=== PATIENT | male | born 1960 | race Caucasian/White ===

== ENCOUNTER 2016-11-22 14:42 | Observation (INO) | payer BC ==
[2016-11-22] MEDS ORDERED: Sodium Chloride 0.9% 1000 ML 1,000 ML IV SCH (15:45)
[2016-11-22 16:04] LABS: ALBUMIN 3.4 g/dL (3.4-5.0); ALKALINE PHOSPHATASE 89 U/L (46-116); ANION GAP 13.8 MEQ/L (5-15); BLOOD UREA NITROGEN 10 mg/dL (9-20); CHLORIDE 101 mEq/L (98-107); Carbon Dioxide 27.6 mEq/L (21-32); Glucose 141 MG/DL (70-110); Potassium 3.7 mEq/L (3.5-5.1); SGOT/AST 28 U/L (15-37); SGPT/ALT 58 U/L (12-78); SODIUM 139 mEq/L (136-145); Total Protein 7.7 gm/dL (6.4-8.2)
[2016-11-22] MEDS: Levofloxacin 500MG/100ML D5W 500 MG/100 ML BAG IV SCH (16:08)
[2016-11-22 16:15] LABS: BASOPHIL % 0.1 % (0.0-0.4); Eosinophil % 0.4 % (0.00-5.0); Granulocytes % 87.2 % (36.0-66.0); Lymphocytes % 6.7 % (24.0-44.0); Mean Corpuscular Hemoglobin 30.3 pg (26-32); Monocytes % 5.6 % (0.0-12.0); Platelet Count 190 K/mm3 (150-450); Red Blood Count 4.75 M/mm3 (4.1-5.6); Red Cell Distribution Width 13.8 % (11.5-14.0); White Blood Count 14.6 K/mm3 (4.0-10.5)
[2016-11-22] MEDS ORDERED: VANCOCIN 1 GM VIAL*** 2 GM in Sodium Chloride 0.9% 500 ML 500 ML IV ONE (17:45)
[2016-11-23] MEDS ORDERED: VANCOCIN 1 GM VIAL*** 1.75 GM in Sodium Chloride 0.9% 500 ML 500 ML IV SCH (06:00)
[2016-11-23 06:28] LABS: Mean Corpuscular Hemoglobin 30.7 pg (26-32); Mean Platelet Volume 9.6 fl (6-9.5); Platelet Count 191 K/mm3 (150-450); Red Blood Count 4.86 M/mm3 (4.1-5.6); White Blood Count 14.2 K/mm3 (4.0-10.5)
--- NOTE | 2016-11-23 08:45 | CONS ---
CONSULT DATE: 11/22/2016 HISTORY: The patient is a 56 year-old gentleman who has had wart-like lesion on his arm for some time, whether he picked at it or it fell off. He had some redness and swelling of his arm over the past couple of days and sent to the hospital by Dr. Morgan as per surgical consult. PAST SURGICAL HISTORY: Hernia repair in the past. MEDICATIONS: He is on one medication but he is not sure of the name so the nurse is working on obtaining that. He denies blood thinner use. Please see the MAR. ALLERGIES: NKDA. SOCIAL HISTORY: No alcohol abuse. FAMILY HISTORY: Negative in regards to this problem. REVIEW OF SYSTEMS: Twelve systems reviewed per admission assessment. No chest pain or palpitations. He denies any blood thinner use or bleeding problems. He denies any surgery on his arm in the past. PHYSICAL EXAMINATION: GENERAL: Slightly sore white male in no acute distress. HEENT: Sclera nonicteric. NECK: No JVD. CHEST: Equal excursion, nonlabored breathing. CVS: Regular rhythm and pulse. ABDOMEN: Soft, obese. No peritoneal signs. EXTREMITIES: No significant edema. NEURO: Alert, oriented, moving extremities grossly symmetrically with exception of range of motion of his right upper extremity tenderness, aches, pain and swelling. Right upper extremity he has a wart-like lesion distal to the elbow. No specific fluctuance. No drainage at that time. He does have a dressing over it but no drainage. Otherwise he has some redness around his arm in this area. No isolated fluctuant area at this time. He has palpable radial pulses. Otherwise sensation is intact. LAB DATA AND TESTS: There are no labs available at this time. IMPRESSION: Cellulitis right arm, small little wart-like lesion in that area. No active drainage. No isolated fluctuance to drain at this time. He is on IV Levaquin at this time. I recommend IV Vancomycin for Staph coverage. Maybe consider Zosyn or other medication. The patient denies any diabetes. Otherwise there is no obvious isolated fluctuant area discussed the option of excising this lesion on his upper extremity and drainage if there is any collection underneath. General risk of bleeding, infection, aches and pains, possibility of not finding any collection underneath, this was discussed with the patient at length. General risk of anesthesia, deep venous thrombosis, pulmonary embolism, pneumonia but not limited to, risk of infection possibly requiring other procedures. He also understands if there is any infection of the joint itself that orthopedics would need to manage that. He understands but at this time he is not agreeing to consider any operative intervention at this moment. He prefers just to continue IV antibiotics, medical management. If he fails to improve or develops an isolated fluctuant area that needed draining might need to reconsider but at this time he is not agreeing to consider any surgical intervention at this time as there is not an isolated fluctuance in the area. I will continue with the patient's wishes and no surgical intervention at this time, continue IV antibiotics, medical management. I will be tied up in [place] tomorrow. One of my partners may stop by and check on the patient tomorrow.
[2016-11-23] MEDS ORDERED: Protonix 40MG Tablet PO SCH (10:00)
[2016-11-23] MEDS ORDERED: FLUCELVAX QUAD 2017-2018 SYR IM ONE (10:00)
[2016-11-23] MEDS: Levofloxacin 500MG/100ML D5W 500 MG/100 ML BAG IV SCH (11:09)
--- NOTE | 2016-11-23 13:04 | PCM.NOTE ---
Date and Time: 11/23/16 1303 Subjective Assessment: doing ok - Review of Systems Constitutional: No Fever, No Chills Eyes: No Symptoms Ears, Nose, & Throat: No Symptoms Respiratory: No Cough, No Short Of Breath Cardiac: No Chest Pain, No Edema, No Syncope Abdominal/Gastrointestinal: No Abdominal Pain, No Nausea, No Vomiting, No Diarrhea Genitourinary Symptoms: No Dysuria Musculoskeletal: No Back Pain, No Neck Pain Skin: No Rash Neurological: No Dizziness, No Focal Weakness, No Sensory Changes Psychological: No Symptoms Endocrine: No Symptoms Hematologic/Lymphatic: No Symptoms Immunological/Allergic: No Symptoms Objective Exam General Appearance: no apparent distress, alert Neurologic Exam: alert, oriented x 3, cooperative, normal mood/affect, nml cerebellar function, sensation nml, No motor deficits Skin Exam: normal color, warm, dry Eye Exam: PERRL, EOMI, eyes nml inspection Ears, Nose, Throat Exam: normal ENT inspection, pharynx normal, moist mucous membranes Neck Exam: normal inspection, non-tender, supple, full range of motion Respiratory Exam: normal breath sounds, lungs clear, No respiratory distress Cardiovascular Exam: regular rate/rhythm, normal heart sounds Gastrointestinal/Abdomen Exam: soft, No tenderness, No mass Extremity Exam: normal inspection, normal range of motion Back Exam: normal inspection, normal range of motion, No CVA tenderness, No vertebral tenderness Male Genitalia Exam: deferred Rectal Exam: deferred OBJECTIVE DATA Vital Signs: Vital Signs - 24 hr Temp Pulse Resp BP Pulse Ox 11/23/16 11:23 98.6 F 90 18 124/70 94 L 11/23/16 07:18 97.6 F 96 H 18 134/72 95 11/23/16 03:32 98.2 F 95 H 17 152/82 94 L 11/23/16 00:00 98.8 F 96 H 16 144/84 93 L 11/22/16 20:00 98.8 F 100 H 18 160/85 94 L 11/22/16 16:02 98.4 F 97 H 18 129/71 96 11/22/16 15:05 98 F 102 H 18 159/96 96 11/22/16 15:02 98.0 F 102 H 18 159/96 96 Pain Assessment - Last Documented Pain Intensity 8 Pain Scale Used 0-10 Pain Scale Intake and Output: Intake & Output 1011/22/16 11/23/16 11/24/16 11:59 11:59 11:59 11:59 Intake Total 1897 0 Output Total 1260 1000 Balance 637 -1000 Weight 117.537 kg Lab Results: Lab Results-Last 24 Hours 11/22/16 11/22/16 11/23/16 Range/Units 15:30 16:05 05:00 WBC 14.6 H 14.2 H (4.0-10.5) K/mm3 RBC 4.75 4.86 (4.1-5.6) M/mm3 Hgb 14.4 14.9 (12.5-18.0) gm/dl Hct 43.7 44.7 (42-50) % MCV 92.0 92.0 (78-100) fl MCH 30.3 30.7 (26-32) pg MCHC 33.0 33.3 (32-36) g/dl RDW 13.8 14.0 (11.5-14.0) % Plt Count 190 191 (150-450) K/mm3 MPV 9.0 9.6 H (6-9.5) fl Gran % 87.2 H (36.0-66.0) % Lymphocytes % 6.7 L (24.0-44.0) % Monocytes % 5.6 (0.0-12.0) % Eosinophils % 0.4 (0.00-5.0) % Basophils % 0.1 (0.0-0.4) % Basophils # 0.02 (0-0.4) Sodium 139 (136-145) mEq/L Potassium 3.7 (3.5-5.1) mEq/L Chloride 101 (98-107) mEq/L Carbon Dioxide 27.6 (21-32) mEq/L Anion Gap 13.8 (5-15) MEQ/L BUN 10 (9-20) mg/dL Creatinine 0.99 (0.55-1.30) mg/dl Estimated GFR > 60 ML/MIN Glucose 141 H (70-110) MG/DL Calcium 8.9 (8.5-10.1) mg/dL Total Bilirubin 0.80 (0.2-1.0) mg/dL AST 28 (15-37) U/L ALT 58 (12-78) U/L Alkaline Phosphatase 89 (46-116) U/L Serum Total Protein 7.7 (6.4-8.2) gm/dL Albumin 3.4 (3.4-5.0) g/dL Multi-Disciplinary Progress Notes: Multi-Disciplinary Progress Notes 11/23/16 07:26 Pharmacy Note by PRODUCT DEVELOPMENT,PHARM 11/23: Pharmacy to dose Vancomycin for right upper arm cellulitis. Vancomycin 1750 mg q12 hrs (Wt: 259 lbs SCr: 0.99) to produce a predicted peak of 29.7 mcg/ ml and a predicted trough of 13.51 mcg/ml. Monitor BUN & SCr at least q3 days ( more frequently if unstable). Trough to be drawn 11/24. Thank you! Pau, pharmacy tech Initialized on 11/23/16 07:26 - END OF NOTE Assessment/Plan (1) Cellulitis of right arm Current Visit: Yes Status: Acute Assessment & Plan: Chief Complaint Diagnosis Cellulitis right arm Allergies Allergy/AdvReac Type Severity Reaction Status Date / Time No Known Drug Allergies Allergy Verified 11/22/16 15:05 Vital Signs (Last 24 hours) Temp Pulse Resp BP Pulse Ox 11/23/16 11:23 98.6 F 90 18 124/70 94 L 11/23/16 07:18 97.6 F 96 H 18 134/72 95 11/23/16 03:32 98.2 F 95 H 17 152/82 94 L 11/23/16 00:00 98.8 F 96 H 16 144/84 93 L 11/22/16 20:00 98.8 F 100 H 18 160/85 94 L 11/22/16 16:02 98.4 F 97 H 18 129/71 96 11/22/16 15:05 98 F 102 H 18 159/96 96 11/22/16 15:02 98.0 F 102 H 18 159/96 96 Home Medications Medication Instructions Recorded Confirmed Last Taken Type Levofloxacin [Levaquin] 500 mg PO DAILY 11/22/16 11/22/16 11/22/16 History PANTOPRAZOLE 40 mg Tablet 40 mg PO QAM 11/22/16 11/22/16 11/22/16 History [Protonix 40MG Tablet] Current Medications Generic Name Dose Route Start Last Admin Trade Name Freq PRN Reason Stop Dose Admin Levofloxacin/Dextrose 500 mg in 100 mls @ 100 mls/hr 11/22/16 15:35 11/23/16 11:09 Levofloxacin 500mg/100ml D5w IV 12/22/16 15:34 100 mls/hr Q24H10 APRYL Administration Sodium Chloride 1,000 mls @ 80 mls/hr 11/22/16 15:45 11/22/16 16:08 Sodium Chloride 0.9% 1000 Ml IV 12/22/16 15:44 80 mls/hr .[id number] APRYL Administration Vancomycin HCl 1.75 gm/ Sodium 500 mls @ 167 mls/hr 11/23/16 06:00 11/23/16 06:04 Chloride IV 12/23/16 05:59 167 mls/hr Q12H APRYL Administration Influenza Virus Vaccine Quadrival 60 mcg 11/24/16 10:00 Flucelvax Quad [id number] Syr IM 11/24/16 10:01 .ONCE ONE Pantoprazole Sodium 40 mg 11/23/16 10:00 11/23/16 11:08 Protonix 40mg Tablet PO 12/23/16 09:59 40 mg QAM APRYL Administration Discontinued Medications Generic Name Dose Route Start Last Admin Trade Name Freq PRN Reason Stop Dose Admin Vancomycin HCl 2 gm/ Sodium 500 mls @ 167 mls/hr 11/22/16 17:45 11/22/16 17: 54 Chloride IV 11/22/16 20:44 167 mls/hr NOW ONE Administration Intake & Output (Last 24 hours) 11/21/16 11/22/16 11/23/16 11/24/16 11:59 11:59 11:59 11:59 Intake Total 1897 0 Output Total 1260 1000 Balance 637 -1000 Weight 117.537 kg Microbiology Results (Last 24 hours) 11/22/16 16:05 Blood - Pending 11/22/16 16:05 Blood Blood Culture - Pending 11/22/16 15:30 Blood - Pending 11/22/16 15:30 Blood Blood Culture - Pending Laboratory Results (Last 24 hours) 11/23/16 11/22/16 11/22/16 05:00 16:05 15:30 WBC 14.2 H 14.6 H RBC 4.86 4.75 Hgb 14.9 14.4 Hct 44.7 43.7 MCV 92.0 92.0 MCH 30.7 30.3 MCHC 33.3 33.0 RDW 14.0 13.8 Plt Count 191 190 MPV 9.6 H 9.0 Gran % 87.2 H Lymphocytes % 6.7 L Monocytes % 5.6 Eosinophils % 0.4 Basophils % 0.1 Basophils # 0.02 Sodium 139 Potassium 3.7 Chloride 101 Carbon Dioxide 27.6 Anion Gap 13.8 BUN 10 Creatinine 0.99 Estimated GFR > 60 Glucose 141 H Calcium 8.9 Total Bilirubin 0.80 AST 28 ALT 58 Alkaline Phosphatase 89 Serum Total Protein 7.7 Albumin 3.4 Orders (Last 24 hours) Category Date Time Status Activity as Tolerated TOLERATED Activity 11/22/16 15:37 Active Admission/Status Order ROUTINE Care 11/22/16 14:42 Active Consult Surgery ROUTINE Cons 11/22/16 15:37 Active NPO Diet 11/23/16 00:01 Active Regular Diet Diet 11/22/16 Dinner Completed BLOOD CULTURE Routine Lab 11/22/16 16:05 Received CBC AM.LAB Lab 11/23/16 05:00 Completed CBC W DIFF Routine Lab 11/22/16 16:05 Completed CMP Routine Lab 11/22/16 15:30 Completed Vancomycin,Trough Urgent Lab 11/24/16 05:30 Ordered Flu Vac Qs 17-18(4Yr Up)Naz/Pf [Flucelvax Quad 2017- Med 11/24/16 10:00 Once 2018 Syr] 60 mcg IM .ONCE ONE Levofloxacin [Levofloxacin 500MG/100ML D5W] Med 11/22/16 15:35 Active 500 mg in 100 ml IV Q24H10 NaCl 0.9% 1000 ml [Sodium Chloride 0.9% 1000 ML] 1,000 Med 11/22/16 15:45 Active ml IV 80 mls/hr PANTOPRAZOLE 40 mg Tablet [Protonix 40MG Tablet] Med 11/23/16 10:00 Active 40 mg PO QAM Therapuetic Drug Level Monitor [Trough Drug Levels] Med 11/24/16 05:30 Once 1 IJ 1XONLY ONE Vancomycin HCl 1 gm Inj [Vancocin 1 gm Vial] 1.75 Med 11/23/16 06:00 Active gm NaCl 0.9% 500 ml [Sodium Chloride 0.9% 500 ML] 500 ml IV Q12H Vancomycin HCl 1 gm Inj [Vancocin 1 gm Vial] 2 gm Med 11/22/16 17:45 Discontinued NaCl 0.9% 500 ml [Sodium Chloride 0.9% 500 ML] 500 ml IV NOW PT Screen per Nursing Assess PT 11/22/16 15:53 Active Patient Care Notes (Last 24 hours) 11/23/16 07:26 Pharmacy Note by PRODUCT DEVELOPMENT,PHARM 11/23: Pharmacy to dose Vancomycin for right upper arm cellulitis. Vancomycin 1750 mg q12 hrs (Wt: 259 lbs SCr: 0.99) to produce a predicted peak of 29.7 mcg/ ml and a predicted trough of 13.51 mcg/ml. Monitor BUN & SCr at least q3 days ( more frequently if unstable). Trough to be drawn 11/24. Thank you! Pau, pharmacy tech Initialized on 11/23/16 07:26 - END OF NOTE 11/22/16 17:23 Nursing Note by Maricel Suero @ [facility] DR FLEMING WAS IN TO SEE PT. WANTED TO OPEN WOUND UP, BUT PT REFUSED BECAUSE HE COULD NOT HAVE GENERAL ANESTHESIA D/T HAVE EATEN TODAY. PT WAS NOT WILLING TO DUE LOCAL ANESTHESIA AT THIS TIME. DR FLEMING STATED CONTINUE ANTIBIOTICS, NEW ORDER FOR [facility] PHARM TO DOSE. dR FISHER STATED SOMEONE WOULD SEE PT TOMORROW EVENING (11/23/16) Initialized on 11/22/16 17:23 - END OF NOTE Code(s): L03.113 - CELLULITIS OF RIGHT UPPER LIMB
[2016-11-23] MEDS ORDERED: MORPHINE SULFATE 2 MG INJ IV PRN (13:14)
--- NOTE | 2016-11-23 15:41 | XRAY ---
Indication: Pain, erythema, and swelling for 4 days. Multiple contiguous axial images obtained through the right forearm using 100 cc Isovue 370 contrast. Two-dimensional sagittal and coronal reformatted images obtained. Comparison: None There is subcutaneous edema involving the entire posterior medial arm, greatest near the elbow favoring cellulitis. Adjacent to the olecranon process is a irregular enhancing subcutaneous fluid collection measuring 2.0 x 2.7 x 3.4 cm worrisome for abscess. No acute fracture, dislocation, suspicious bony lesions, or osseous destructive process. Impression: Right forearm cellulitis. Suspect subcutaneous abscess adjacent to the olecranon process. No CT evidence for osteomyelitis. CTDI 74.34
[2016-11-23 16:24] VITALS: BP 156/78; PULSE 92; O2SAT 96
[2016-11-24] MEDS ORDERED: TROUGH DRUG LEVELS IJ ONE (05:30)
[2016-11-24] MEDS ORDERED: FLUCELVAX QUAD 2017-2018 SYR IM ONE (10:00)
== END 2016-11-23 18:15 | disposition short-term general hospital (02) ==
LOC: MED SURG 14:42
PROVIDERS: ADMIT General Practice; ATTEND General Practice
DX: L03.113 Cellulitis of right upper limb (principal); E78.5 Hyperlipidemia, unspecified
CPT/HCPCS: 36415; 73201; 80053; 85025; 85027; 87040; G0378; J1956; J3370; 90682; A9270-GY